=== PATIENT | male | born 1980 | race American Indian/Alaskan Native ===

== ENCOUNTER 2017-03-10 09:24 | Emergency (ER) | payer OTHER ==
[2017-03-10] MEDS ORDERED: cefTRIAXone (Rocephin) 250 mg Inj IM STA (09:56)
--- NOTE | 2017-03-10 10:06 | ED PDOC ---
Arrival/HPI - General Chief Complaint: Male Genitourinary Time Seen by Provider: 03/10/17 09:48 Historian: Patient - History of Present Illness Narrative History of Present Illness (Text): 03/10/17 09:48 Eddi Keller is a 36 year old male complaining of penile abnormal discharge and discomfort for 3-5 days. Patient states that his partner was tested positive for gonorrhea, prompting patient to come to emergency department for further evaluation. Patient notes that the penial discharge is a light, opaque color while also experiencing odd sensations while urinating. Patient denies any testicular pain or any other complaint at this time. Time/Duration: < week (3-5 days) Symptom Onset: Gradual Symptom Course: Unchanged Severity Level: Mild Activities at Onset: Light Context: Home Past Medical History - Provider Review Nursing Documentation Reviewed: Yes - Cardiac Hx Cardiac Disorders: No - Psychiatric Hx Substance Use: No Family/Social History - Physician Review Nursing Documentation Reviewed: Yes Family/Social History: No Known Family HX Smoking Status: Never Smoked Hx Alcohol Use: Yes Frequency of alcohol use: Socially Hx Substance Use: No Allergies/Home Meds Allergies/Adverse Reactions: Allergies No Known Allergies Allergy (Verified 03/10/17 09:43) Home Medications: Home Meds Medication Instructions Recorded Confirmed Hiv Med 1 tab PO DAILY 03/10/17 Review of Systems - Physician Review All systems were reviewed & negative as marked: Yes - Review of Systems Constitutional: absent: Fevers, Night Sweats Eyes: absent: Vision Changes ENT: absent: Hearing Changes Respiratory: absent: SOB, Cough Cardiovascular: absent: Chest Pain Gastrointestinal: absent: Abdominal Pain Genitourinary Male: Other ( penile abnormal discharge and discomfort) Musculoskeletal: absent: Arthralgias, Back Pain Skin: absent: Rash, Pruritis Neurological: absent: Headache, Dizziness Endocrine: absent: Diaphoresis Hemo/Lymphatic: absent: Adenopathy Psychiatric: absent: Anxiety Physical Exam - Physical Exam Narrative Physical Exam (Text): Constitutional: No acute distress. Head: Normocephalic. Atraumatic. Eyes: PERRL. ENT: Moist mucous membranes. Neck: Supple. Cardiovascular: Regular rate. Chest: No tenderness. Respiratory: Clear to auscultation bilaterally. GI: Soft. Nontender. Nondistended. : No testicular or penile lesions. No inguinal lymphadenopathy. Dried discharge on underwear but no active discharge. Back: No CVA tenderness. Musculoskeletal: No tenderness or swelling of extremities. Skin: No rash. Neurologic: Alert, no focal deficit. Vital Signs Reviewed: Yes Vital Signs Temp Pulse Resp BP Pulse Ox 03/10/17 09:41 98.9 F 69 18 128/95 H 100 Temperature: Afebrile Blood Pressure: Hypertensive Pulse: Regular Respiratory Rate: Normal Appearance: Positive for: Well-Appearing, Non-Toxic, Comfortable Pain Distress: None Mental Status: Positive for: Alert and Oriented X 3 Medical Decision Making ED Course and Treatment: 03/10/17 09;48 Impression: 36 year old male complaining of abnormal penile discharge and discomfort for 3- 5 days. Plan: -- Urine Culture -- Chlamydia/GC RNA, TMA -- Zithromax and Rocephin -- Patient states he can follow up with his primary for full STD testing. - Medication Orders Current Medication Orders: Discontinued Medications Azithromycin (Zithromax) 1,000 mg PO STAT STA PRN Reason: Protocol Stop: 03/10/17 09:57 Last Admin: 03/10/17 10:04 Dose: 1,000 mg Ceftriaxone Sodium (Rocephin) 250 mg IM STAT STA PRN Reason: Protocol Stop: 03/10/17 09:57 Last Admin: 03/10/17 10:04 Dose: 250 mg - Scribe Statement The provider has reviewed the documentation as recorded by the Sylvester Cantu Provider Scribe Attestation: All medical record entries made by the Rafaelibcynthia were at my direction and personally dictated by me. I have reviewed the chart and agree that the record accurately reflects my personal performance of the history, physical exam, medical decision making, and the department course for this patient. I have also personally directed, reviewed, and agree with the discharge instructions and disposition. Disposition/Present on Arrival - Present on Arrival Any Indicators Present on Arrival: No History of DVT/PE: No History of Uncontrolled Diabetes: No Urinary Catheter: No History of Decub. Ulcer: No History Surgical Site Infection Following: None - Disposition Have Diagnosis and Disposition been Completed?: Yes Diagnosis: Urethritis Disposition: HOME/ ROUTINE Disposition Time: 09:57 Condition: STABLE Discharge Instructions (ExitCare): Sexually Transmitted Diseases (ED) [facility] - Follow up with primary
[2017-03-10 12:48] VITALS: BP 128/95; PULSE 69; RESP 18; TEMP 98.9; O2SAT 100; BMI 23.0
== END 2017-03-10 10:31 | disposition home or self-care (01) ==
LOC: ED 09:24
DX: N34.2 Other urethritis (principal)
CPT/HCPCS: 87086; 96372; 99283; J0696